=== PATIENT | female | born 1970 | race Caucasian/White ===

== ENCOUNTER 2022-12-21 07:13 | Day surgery (SDC) | payer OTHER ==
[~2022-12-21] VITALS: Ht 160 cm; Wt 64.0 kg
[2022-12-21 08:04] LABS: HCG,QUAL RESULT NEGATIVE (NEGATIVE)
[2022-12-21] MEDS ORDERED: fentaNYL CITRATE/PF 100 MCG/2 ML AMP ONE (08:34)
[2022-12-21] MEDS ORDERED: MIDAZOLAM HCL 5 MG/5 ML VIAL ONE (08:35)
[2022-12-21 10:00] VITALS: BP_SYST 98
== END 2022-12-21 09:45 | disposition home or self-care (01) ==
LOC: SDS 07:13 → SMU 07:14 → SDS 09:45
PROVIDERS: ATTEND Internal Medicine
DX: Z12.11 Encounter for screening for malignant neoplasm of colon (principal); E78.5 Hyperlipidemia, unspecified; K57.30 Diverticulosis of large intestine without perforation or abscess without bleeding; K64.8 Other hemorrhoids; Z79.899 Other long term (current) drug therapy
CPT/HCPCS: 45378; 84703; 99152; G0378; J2250; J3010